=== PATIENT | female | born 1990 | race Caucasian/White ===

== ENCOUNTER 2024-07-19 10:06 | Emergency (ER) | payer OTHER, MEDICAID ==
[2024-07-19] MEDS: Ibuprofen 800 MG Tab PO STA (11:27)
== END 2024-07-19 13:34 | disposition home or self-care (01) ==
LOC: MW.ED 10:06
DX: S16.1XXA Strain of muscle, fascia and tendon at neck level, initial encounter (principal); S09.90XA Unspecified injury of head, initial encounter; E03.9 Hypothyroidism, unspecified; Z79.899 Other long term (current) drug therapy; Z75.8 Other problems related to medical facilities and other health care; Z88.0 Allergy status to penicillin; Z91.013 Allergy to seafood; V49.59XA Passenger injured in collision with other motor vehicles in traffic accident, initial encounter; Y93.89 Activity, other specified
CPT/HCPCS: 70450; 72125; 99284; A9270